=== PATIENT | male | born 1980 | race Hispanic/Latino ===

== ENCOUNTER 2016-04-20 22:56 | Emergency (ER) | payer OTHER ==
[~2016-04-20] VITALS: Ht 165.1 cm; Wt 67.4 kg
[~2016-04-20 22:56] MED LIST: AMOXICILLIN500 MG PO; BACTRIM DS1 TAB PO; CIPRO500 MG OR; CIPROFLOXACN500 MG PO; LORTAB 1010 MG PO; METRONIDAZOL500 MG PO; NAPROSYN500 MG PO; NO HOME MEDS; NORCO1 TA1 PO; ONDANSETRON4 MG PO; PENICILLN VK500 MG OR; ULTRAM50 M1 PO; ULTRAM50 MG OR
[2016-04-20] MEDS ORDERED: DICLOFENAC50 MG PO (23:07)
[2016-04-21 00:59] LABS: HEMATOCRIT 48.6 % (39.0-50.0); HEMOGLOBIN 16.6 g/dl (14.0-18.0); IMMATURE GRANULOCYTES 0.2 % (0.0-1.0); MEAN CELL VOLUME 89.2 fL CALC (80.0-100.0); MEAN CORPUSCULAR HGB 30.5 pG CALC (26.0-32.0); MEAN CORPUSCULAR HGB CONC 34.2 g/L CALC (32.0-36.0); NEUT# 5.53 thou/uL (1.82-7.42); RED BLOOD COUNT 5.45 mill/uL (4.70-6.10); RED CELL DISTRI WIDTH 12.5 % (11.5-15.5)
[2016-04-21 01:24] LABS: ALBUMIN 4.8 g/dL (3.2-5.0); ALKALINE PHOSPHATASE 57 u/l (38-126); AMYLASE 122 u/l (30-110); ANION GAP 18 (6-22 (CALC)); BILIRUBIN, TOTAL 0.5 mg/dL (0.0-1.4); BUN 15 mg/dL (9-20); BUN/CREATININE RATIO 18 (12-20 (CALC)); CALCIUM 9.3 mg/dL (8.4-10.2); CARBON DIOXIDE 26 mmol/l (22-30); CHLORIDE 102 mmol/l (95-108); CREATININE 0.8 mg/dL (0.7-1.3); GFR > 60 ML/MIN (>=60 (CALC)); GFR FOR AFR.AMER. > 60 ML/MIN (>=60 (CALC)); GLUCOSE 102 mg/dL (75-110); LIPASE 121 u/l (23-300); POTASSIUM 4.3 mmol/l (3.5-5.1); SGOT/AST 20 u/l (17-59); SGPT/ALT 32 u/l (21-72); SODIUM 142 mmol/l (137-146); TOTAL PROTEIN 8.7 g/dL (6.3-8.2)
[2016-04-21] MEDS ORDERED: PROTONIX40 MG PO (04:31)
[2016-04-21 04:58] VITALS: BP 131/84
== END 2016-04-21 04:58 | disposition home or self-care (01) | DRG 392 ==
LOC: ED 22:56
PROVIDERS: Emergency Medicine
DX: R10.9 Unspecified abdominal pain (principal)
CPT/HCPCS: Q9967

== ENCOUNTER 2016-09-18 20:16 | Inpatient (IN) | payer SELFPAY ==
[~2016-09-18] VITALS: Ht 165.1 cm; Wt 73.9 kg
[~2016-09-18 20:16] MED LIST changes: +DICLOFENAC50 MG PO; +PROTONIX40 MG PO
--- NOTE | 2016-09-18 20:43 | NUR ---
TO ROOM 8 VIA W/C. ASSISTED TO THE STRETCHER. MAINTAINS THAT HE CAN NOT GIVE A URINE SPECIMEN AT THIS TIME.
[2016-09-18 20:56] LABS: URINE BILIRUBIN - DIPSTICK NEGATIVE (NEGATIVE); URINE BLOOD DIPSTICK NEGATIVE (NEGATIVE); URINE CLARITY CLEAR; URINE COLOR YELLOW; URINE GLUCOSE - DIPSTICK NEGATIVE (NEGATIVE); URINE KETONE NEGATIVE (NEGATIVE); URINE LEUK ESTERASE NEGATIVE (NEGATIVE); URINE NITRITE - DIPSTICK NEGATIVE (Negative); URINE PROTEIN - DIPSTICK NEGATIVE (NEG-TRACE); URINE SPECIFIC GRAVITY 1.015; URINE UROBILINOGEN - DIPSTICK 0.2 E.U./dL (0.2)
[2016-09-18 20:58] LABS: HEMOGLOBIN 15.9 g/dl (14.0-18.0); IMMATURE GRANULOCYTES 0.4 % (0.0-1.0); MEAN CELL VOLUME 91.4 fL CALC (80.0-100.0); MEAN CORPUSCULAR HGB 30.9 pG CALC (26.0-32.0); MEAN CORPUSCULAR HGB CONC 33.8 g/L CALC (32.0-36.0); NEUT# 3.82 thou/uL (1.82-7.42); RED BLOOD COUNT 5.14 mill/uL (4.70-6.10); RED CELL DISTRI WIDTH 12.2 % (11.5-15.5)
--- NOTE | 2016-09-18 20:59 | NUR ---
IVF AND IV PAIN MED GIVEN PER MD ORDER.
[2016-09-18 21:09] LABS: ALKALINE PHOSPHATASE 41 u/l (38-126); AMYLASE 105 u/l (30-110); ANION GAP 17 (6-22 (CALC)); BILIRUBIN, TOTAL 0.4 mg/dL (0.0-1.4); BUN 17 mg/dL (9-20); BUN/CREATININE RATIO 18 (12-20 (CALC)); CALCIUM 9.8 mg/dL (8.4-10.2); CARBON DIOXIDE 28 mmol/l (22-30); CHLORIDE 101 mmol/l (95-108); CREATININE 0.9 mg/dL (0.7-1.3); GFR > 60 ML/MIN (>=60 (CALC)); GFR FOR AFR.AMER. > 60 ML/MIN (>=60 (CALC)); GLUCOSE 89 mg/dL (75-110); LIPASE 172 u/l (23-300); POTASSIUM 4.3 mmol/l (3.5-5.1); SGOT/AST 16 u/l (17-59); SGPT/ALT 37 u/l (21-72); SODIUM 141 mmol/l (137-146); TOTAL PROTEIN 7.9 g/dL (6.3-8.2)
--- NOTE | 2016-09-18 21:59 | NUR ---
RESTING ON STRETCHER, NO C/O FAMILY AT SIDE.
--- NOTE | 2016-09-18 22:18 | NUR ---
PT. STATES HIS ABD. PAIN IS NOW DECREASED TO A 7 ON MA SCALE OF 1-10.
--- NOTE | 2016-09-18 22:30 | NUR ---
IN ROOM TO DISCUSS CLINICAL FINDINGS WITH PT. VERBALIZED UNDERSTANDING.
--- NOTE | 2016-09-18 22:56 | NUR ---
IV ABT STARTED PER MD ORDER.
--- NOTE | 2016-09-18 23:16 | NUR ---
Admission Note Report Given to: PIOTR DELAROSA Transported by: Wheelchair X Stretcher Transported with: X Nurse Transporter X Patent IV O2 Site Controller
--- NOTE | 2016-09-18 23:22 | NUR ---
TRANSFERED TO ME VIA STRETCHER, NO C/O.
--- NOTE | 2016-09-18 23:28 | NUR ---
PATIENT ARRIVED TO THE FLOOR VIA STRETCHER, ACCOMPANIED BY ED STAFF AND FAMILY. PATIENT SETTLED TO BED AND ORIENTED TO ROOM CALL SYSTEM. STATED PAIN OF 7 ON 0-10 PAIN SCALE. BED IN LOW POSITION, CALL LIGHT IN REACH. WILL CONTINUE TO MONITOR.
[2016-09-19 00:42] VITALS: BP 124/84
[2016-09-19 04:00] VITALS: BP 108/67
--- NOTE | 2016-09-19 04:00 | NUR ---
PATIENT RESTING QUIETLY WITH EYES CLOSED AND APPEARS TO BE ASLEEP. NO APPARENT ACUTE DISTRESS OR DISCOMFORT NOTED AT THIS TIME.
--- NOTE | 2016-09-19 07:00 | NUR ---
REPORT RECIEVED FROM ISAURA SALDAÑA; PT RESTING IN BED; NO S/S OF DISTRESS NOTED; CALL [facility] WITHIN REACH; WILL CONTINUE TO MONITOR
[2016-09-19 08:08] VITALS: BP 121/77
--- NOTE | 2016-09-19 12:00 | NUR ---
PT RESTING IN BED; NO S/S OF DISTRESS NOTED; IVF INFUSING AT PRESCRIBED RATE; PT DENIES ANY NEEDS AT THIS TIME; CALL LIGHT WITHIN REACH WILL CONTINUE TO MONITOR
[2016-09-19] MEDS ORDERED: TRAMADOL HCL50 MG PO (13:22)
[2016-09-19] MEDS ORDERED: FLORASTOR250 M1 PO (13:22)
[2016-09-19] MEDS ORDERED: CIPROFLOXACN500 MG PO (13:22)
[2016-09-19] MEDS ORDERED: METRONIDAZOL500 MG PO (13:22)
[2016-09-19 14:15] VITALS: BP 151/77
--- NOTE | 2016-09-19 14:45 | NUR ---
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 Did not have any additional questions or concerns regarding medication.
--- NOTE | 2016-09-19 15:47 | NUR ---
Discharge instructions given. Patient verbalizes understanding of same. Discharged in stable condition via Wheelchair to Home with staff. All belongings sent with pt.
== END 2016-09-19 15:30 | disposition home or self-care (01) | DRG 392 ==
LOC: ENPENDDIS → ED 20:16 → ED-I 22:45 → ED 23:00 → MS2 23:01 → UNDODEPER 09-19 02:59 → MS2 09-19 15:30
PROVIDERS: Emergency Medicine; ADMIT Internal Medicine; ATTEND Internal Medicine
DX: K57.32 Diverticulitis of large intestine without perforation or abscess without bleeding (principal)
CPT/HCPCS: J1956

== ENCOUNTER 2017-04-15 18:11 | Emergency (ER) | payer SELFPAY ==
[~2017-04-15] VITALS: Ht 165.1 cm; Wt 59.0 kg
[~2017-04-15 18:11] MED LIST changes: +FLORASTOR250 M1 PO; +TRAMADOL HCL50 MG PO
[2017-04-15 18:48] LABS: HEMATOCRIT 43.5 % (39.0-50.0); HEMOGLOBIN 14.8 g/dl (14.0-18.0); IMMATURE GRANULOCYTES 0.4 % (0.0-1.0); MEAN CELL VOLUME 91.2 fL CALC (80.0-100.0); NEUT# 6.55 thou/uL (1.82-7.42); RED BLOOD COUNT 4.77 mill/uL (4.70-6.10); RED CELL DISTRI WIDTH 12.6 % (11.5-15.5)
[2017-04-15 18:49] LABS: URINE BILIRUBIN - DIPSTICK NEGATIVE (NEGATIVE); URINE BLOOD DIPSTICK NEGATIVE (NEGATIVE); URINE COLOR YELLOW; URINE GLUCOSE - DIPSTICK NEGATIVE (NEGATIVE); URINE KETONE NEGATIVE (NEGATIVE); URINE LEUK ESTERASE NEGATIVE (NEGATIVE); URINE NITRITE - DIPSTICK NEGATIVE (Negative); URINE PH 8.5 (4.5-8.0); URINE PROTEIN - DIPSTICK NEGATIVE (NEG-TRACE); URINE UROBILINOGEN - DIPSTICK 0.2 E.U./dL (0.2)
[2017-04-15 19:12] LABS: BARBITURATES NEGATIVE (NEGATIVE); COCAINE NEGATIVE (NEGATIVE); METHADONE NEGATIVE (NEGATIVE); TETRAHYDROCANNABIONOL NEGATIVE (NEGATIVE); TRICYLIC ANTIDEPRESSANTS NEGATIVE (NEGATIVE); URINE CLARITY CLEAR
[2017-04-15 19:13] LABS: OXCYCODONE NEGATIVE (NEGATIVE)
[2017-04-15 19:22] LABS: ALBUMIN 4.4 g/dL (3.2-5.0); ALKALINE PHOSPHATASE 51 u/l (38-126); ANION GAP 17 (6-22 (CALC)); BILIRUBIN, TOTAL 0.4 mg/dL (0.0-1.4); BUN 15 mg/dL (9-20); BUN/CREATININE RATIO 18 (12-20 (CALC)); CARBON DIOXIDE 26 mmol/l (22-30); CHLORIDE 104 mmol/l (95-108); CREATININE 0.8 mg/dL (0.7-1.3); GFR > 60 ML/MIN (>=60 (CALC)); GFR FOR AFR.AMER. > 60 ML/MIN (>=60 (CALC)); POTASSIUM 4.2 mmol/l (3.5-5.1); SGOT/AST 18 u/l (17-59); SGPT/ALT 22 u/l (21-72); SODIUM 142 mmol/l (137-146); TOTAL PROTEIN 7.1 g/dL (6.3-8.2)
[2017-04-15 19:33] LABS: MYOGLOBIN 11 ng/mL (0 - 121)
[2017-04-15 23:10] VITALS: BP 123/81
== END 2017-04-15 23:10 | disposition home or self-care (01) | DRG 313 ==
LOC: ED 18:11
PROVIDERS: Emergency Medicine
DX: R07.89 Other chest pain (principal); R50.9 Fever, unspecified; R94.31 Abnormal electrocardiogram [ECG] [EKG]

== ENCOUNTER 2017-05-08 09:01 | Emergency (ER) | payer SELFPAY ==
[~2017-05-08] VITALS: Ht 165.1 cm; Wt 80.0 kg
[2017-05-08 09:58] LABS: HEMATOCRIT 45.1 % (39.0-50.0); HEMOGLOBIN 15.5 g/dl (14.0-18.0); IMMATURE GRANULOCYTES 0.4 % (0.0-1.0); MEAN CELL VOLUME 90.4 fL CALC (80.0-100.0); MEAN CORPUSCULAR HGB 31.1 pG CALC (26.0-32.0); MEAN CORPUSCULAR HGB CONC 34.4 g/L CALC (32.0-36.0); NEUT# 4.75 thou/uL (1.82-7.42); RED BLOOD COUNT 4.99 mill/uL (4.70-6.10); RED CELL DISTRI WIDTH 12.8 % (11.5-15.5)
[2017-05-08 10:19] LABS: ALBUMIN 4.1 g/dL (3.2-5.0); ALKALINE PHOSPHATASE 64 u/l (38-126); ANION GAP 17 (6-22 (CALC)); BILIRUBIN, TOTAL 0.4 mg/dL (0.0-1.4); BUN 15 mg/dL (9-20); BUN/CREATININE RATIO 18 (12-20 (CALC)); CARBON DIOXIDE 25 mmol/l (22-30); CHLORIDE 106 mmol/l (95-108); CREATININE 0.8 mg/dL (0.7-1.3); GFR > 60 ML/MIN (>=60 (CALC)); GFR FOR AFR.AMER. > 60 ML/MIN (>=60 (CALC)); LIPASE 76 u/l (23-300); POTASSIUM 4.2 mmol/l (3.5-5.1); SGOT/AST 16 u/l (17-59); SGPT/ALT 22 u/l (21-72); SODIUM 144 mmol/l (137-146)
[2017-05-08 11:07] LABS: URINE BILIRUBIN - DIPSTICK NEGATIVE (NEGATIVE); URINE BLOOD DIPSTICK NEGATIVE (NEGATIVE); URINE COLOR YELLOW; URINE GLUCOSE - DIPSTICK NEGATIVE (NEGATIVE); URINE KETONE NEGATIVE (NEGATIVE); URINE LEUK ESTERASE NEGATIVE (NEGATIVE); URINE NITRITE - DIPSTICK NEGATIVE (Negative); URINE PH 7.5 (4.5-8.0); URINE PROTEIN - DIPSTICK NEGATIVE (NEG-TRACE); URINE UROBILINOGEN - DIPSTICK 0.2 E.U./dL (0.2)
[2017-05-08 11:19] LABS: URINE CLARITY CLEAR
[2017-05-08 11:44] VITALS: BP 133/76
== END 2017-05-08 12:05 | disposition home or self-care (01) | DRG 395 ==
LOC: ED 09:01
PROVIDERS: Family Medicine
DX: K40.90 Unilateral inguinal hernia, without obstruction or gangrene, not specified as recurrent (principal); R10.31 Right lower quadrant pain
CPT/HCPCS: Q9967

== ENCOUNTER 2018-07-02 12:16 | Emergency (ER) | payer SELFPAY ==
[~2018-07-02] VITALS: Ht 165.1 cm; Wt 65.0 kg
[~2018-07-02 12:16] MED LIST changes: +AMOXICILLIN500 MG OR; +AUGMENTIN500 MG OR; +CIPRO250 MG OR; +DOXYCYCL HYC100 M4 PO; +ERY-TAB333 MG OR; +FLAGYL250 MG OR; +FLEXERIL OR; +KEFLEX500 MG PO; +NO; +PROMETHAZINE25 MG OR; +ROBITUSSIN AC OR
[2018-07-02 14:03] LABS: HEMATOCRIT 44.1 % (39.0-50.0); IMMATURE GRANULOCYTES 0.4 % (0.0-5.0); MEAN CELL VOLUME 90.9 fL CALC (80.0-100.0); MEAN CORPUSCULAR HGB 30.9 pG CALC (26.0-32.0); NEUT# 2.66 thou/uL (1.82-7.42); RED BLOOD COUNT 4.85 mill/uL (4.70-6.10); RED CELL DISTRI WIDTH 12.4 % (11.5-15.5)
[2018-07-02 14:22] LABS: ALBUMIN 4.4 g/dL (3.2-5.0); ALKALINE PHOSPHATASE 51 u/l (38-126); ANION GAP 15 (6-22 (CALC)); BILIRUBIN, TOTAL 0.6 mg/dL (0.0-1.4); BUN 17 mg/dL (9-20); BUN/CREATININE RATIO 19 (12-20 (CALC)); CARBON DIOXIDE 28 mmol/l (22-30); CHLORIDE 103 mmol/l (95-108); CREATININE 0.9 mg/dL (0.7-1.3); GFR > 60 ML/MIN (>=60 (CALC)); GFR FOR AFR.AMER. > 60 ML/MIN (>=60 (CALC)); LIPASE 77 u/l (23-300); POTASSIUM 3.8 mmol/l (3.5-5.1); SGOT/AST 24 u/l (17-59); SODIUM 142 mmol/l (137-146); TOTAL PROTEIN 7.7 g/dL (6.3-8.2)
[2018-07-02 14:31] LABS: URINE BILIRUBIN - DIPSTICK NEGATIVE (NEGATIVE); URINE BLOOD DIPSTICK TRACE-INTACT (NEGATIVE); URINE COLOR YELLOW; URINE GLUCOSE - DIPSTICK NEGATIVE (NEGATIVE); URINE KETONE NEGATIVE (NEGATIVE); URINE LEUK ESTERASE NEGATIVE (NEGATIVE); URINE NITRITE - DIPSTICK NEGATIVE (Negative); URINE PH 5.5 (4.5-8.0); URINE PROTEIN - DIPSTICK NEGATIVE (NEG-TRACE); URINE SPECIFIC GRAVITY >=1.030; URINE UROBILINOGEN - DIPSTICK 0.2 E.U./dL (0.2)
[2018-07-02 14:39] LABS: BARBITURATES NEGATIVE (NEGATIVE); COCAINE NEGATIVE (NEGATIVE); METHADONE NEGATIVE (NEGATIVE); OXCYCODONE NEGATIVE (NEGATIVE); TETRAHYDROCANNABIONOL NEGATIVE (NEGATIVE); TRICYLIC ANTIDEPRESSANTS NEGATIVE (NEGATIVE)
[2018-07-02] MEDS ORDERED: LOMOTIL2.5 MG PO (15:15)
[2018-07-02] MEDS ORDERED: ONDANSETRON4 MG PO (15:15)
[2018-07-02] MEDS ORDERED: BENTYL10 MG PO (15:15)
[2018-07-02 15:45] VITALS: BP 117/70
[2018-07-02 16:39] LABS: C. DIFFICILE TOXIN A&B NEGATIVE (NEGATIVE)
== END 2018-07-02 15:45 | disposition home or self-care (01) | DRG 392 ==
LOC: ED 12:16
PROVIDERS: Emergency Medicine
DX: K52.9 Noninfective gastroenteritis and colitis, unspecified (principal); R11.2 Nausea with vomiting, unspecified; R10.84 Generalized abdominal pain

== ENCOUNTER 2019-05-31 | Emergency (ER) | payer SELFPAY ==
[~2019-05-31] MED LIST changes: +BENTYL10 MG PO; +LOMOTIL2.5 MG PO
[2019-05-31 19:24] LABS: HEMATOCRIT 44.4 % (39.0-50.0); IMMATURE GRANULOCYTES 0.3 % (0.0-5.0); MEAN CELL VOLUME 89.2 fL CALC (80.0-100.0); MEAN CORPUSCULAR HGB 30.1 pG CALC (26.0-32.0); MEAN CORPUSCULAR HGB CONC 33.8 g/dL CAL (32.0-36.0); NEUT# 4.4 thou/uL (1.82-7.42); RED BLOOD COUNT 4.98 mill/uL (4.70-6.10); RED CELL DISTRI WIDTH 12.6 % (11.5-15.5)
[2019-05-31 19:25] LABS: URINE BILIRUBIN - DIPSTICK NEGATIVE (NEGATIVE); URINE BLOOD DIPSTICK TRACE-INTACT (NEGATIVE); URINE COLOR YELLOW; URINE GLUCOSE - DIPSTICK NEGATIVE (NEGATIVE); URINE KETONE NEGATIVE (NEGATIVE); URINE LEUK ESTERASE NEGATIVE (NEGATIVE); URINE NITRITE - DIPSTICK NEGATIVE (Negative); URINE PH 5.5 (4.5-8.0); URINE PROTEIN - DIPSTICK NEGATIVE (NEG-TRACE); URINE SPECIFIC GRAVITY >=1.030; URINE UROBILINOGEN - DIPSTICK 0.2 E.U./dL (0.2)
[2019-05-31 19:27] LABS: BARBITURATES NEGATIVE (NEGATIVE); COCAINE NEGATIVE (NEGATIVE); METHADONE NEGATIVE (NEGATIVE); OXCYCODONE NEGATIVE (NEGATIVE); TETRAHYDROCANNABIONOL NEGATIVE (NEGATIVE); TRICYLIC ANTIDEPRESSANTS NEGATIVE (NEGATIVE)
[2019-05-31 19:34] LABS: ALBUMIN 4.5 g/dL (3.2-5.0); ALKALINE PHOSPHATASE 49 u/l (38-126); ANION GAP 16 (6-22 (CALC)); BUN 16 mg/dL (9-20); BUN/CREATININE RATIO 19 (12-20 (CALC)); CARBON DIOXIDE 23 mmol/l (22-30); CHLORIDE 103 mmol/l (95-108); CREATININE 0.9 mg/dL (0.7-1.3); GFR > 60 ML/MIN (>=60 (CALC)); GFR FOR AFR.AMER. > 60 ML/MIN (>=60 (CALC)); LIPASE 147 u/l (23-300); POTASSIUM 4.1 mmol/l (3.5-5.1); SGOT/AST 23 u/l (17-59); SODIUM 139 mmol/l (137-146); TOTAL PROTEIN 7.7 g/dL (6.3-8.2)
[2019-05-31 19:36] LABS: BILIRUBIN, TOTAL 0.4 mg/dL (0.0-1.4)
== END 2019-05-31 20:27 | disposition home or self-care (01) | DRG 313 ==
DX: R07.9 Chest pain, unspecified (principal)

== ENCOUNTER 2020-03-17 09:55 | Emergency (ER) | payer OTHER ==
[~2020-03-17] VITALS: Ht 165.1 cm; Wt 75.0 kg
[2020-03-17 10:46] LABS: HEMATOCRIT 45.3 % (39.0-50.0); HEMOGLOBIN 15.1 g/dl (14.0-18.0); IMMATURE GRANULOCYTES 0.4 % (0.0-5.0); MEAN CELL VOLUME 90.1 fL CALC (80.0-100.0); MEAN CORPUSCULAR HGB CONC 33.3 g/dL CAL (32.0-36.0); NEUT# 5.23 thou/uL (1.82-7.42); RED BLOOD COUNT 5.03 mill/uL (4.70-6.10); RED CELL DISTRI WIDTH 12.6 % (11.5-15.5)
[2020-03-17 11:03] LABS: ALBUMIN 4.2 g/dL (3.2-5.0); ALKALINE PHOSPHATASE 59 u/l (38-126); ANION GAP 11 (6-22 (CALC)); BILIRUBIN, TOTAL 0.5 mg/dL (0.0-1.4); BUN 16 mg/dL (9-20); BUN/CREATININE RATIO 20 (12-20 (CALC)); CHLORIDE 105 mmol/l (95-108); CREATININE 0.8 mg/dL (0.7-1.3); GFR > 60 ML/MIN (>=60 (CALC)); GFR FOR AFR.AMER. > 60 ML/MIN (>=60 (CALC)); POTASSIUM 3.9 mmol/l (3.5-5.1); SGOT/AST 23 u/l (17-59); SODIUM 140 mmol/l (137-146); TOTAL PROTEIN 7.5 g/dL (6.3-8.2)
[2020-03-17 11:07] LABS: CARBON DIOXIDE 28 mmol/l (22-30)
[2020-03-17] MEDS ORDERED: ONDANSETRON4 MG PO (11:41)
[2020-03-17 13:28] VITALS: BP 131/81
== END 2020-03-17 13:26 | disposition home or self-care (01) | DRG 313 ==
LOC: ED 09:55
PROVIDERS: Family Medicine
DX: R07.9 Chest pain, unspecified (principal); R11.2 Nausea with vomiting, unspecified; Z20.822 Contact with and (suspected) exposure to COVID-19

== ENCOUNTER 2020-06-10 | Emergency (ER) | payer OTHER ==
[2020-06-10 10:15] LABS: HEMATOCRIT 45.4 % (39.0-50.0); IMMATURE GRANULOCYTES 0.3 % (0.0-5.0); MEAN CELL VOLUME 91.7 fL CALC (80.0-100.0); MEAN CORPUSCULAR HGB 30.3 pG CALC (26.0-32.0); NEUT# 3.62 thou/uL (1.82-7.42); RED BLOOD COUNT 4.95 mill/uL (4.70-6.10); RED CELL DISTRI WIDTH 12.8 % (11.5-15.5)
[2020-06-10 10:31] LABS: URINE BILIRUBIN - DIPSTICK NEGATIVE (NEGATIVE); URINE BLOOD DIPSTICK NEGATIVE (NEGATIVE); URINE COLOR YELLOW; URINE GLUCOSE - DIPSTICK NEGATIVE (NEGATIVE); URINE KETONE NEGATIVE (NEGATIVE); URINE LEUK ESTERASE NEGATIVE (NEGATIVE); URINE PROTEIN - DIPSTICK NEGATIVE (NEG-TRACE); URINE SPECIFIC GRAVITY 1.015; URINE UROBILINOGEN - DIPSTICK 0.2 E.U./dL (0.2)
[2020-06-10 10:34] LABS: URINE NITRITE - DIPSTICK NEGATIVE (Negative)
[2020-06-10 10:35] LABS: ALBUMIN 4.5 g/dL (3.2-5.0); ALKALINE PHOSPHATASE 48 u/l (38-126); ANION GAP 10 (6-22 (CALC)); BILIRUBIN, TOTAL 0.7 mg/dL (0.0-1.4); BUN 15 mg/dL (9-20); BUN/CREATININE RATIO 18 (12-20 (CALC)); CARBON DIOXIDE 31 mmol/l (22-30); CHLORIDE 100 mmol/l (95-108); CREATININE 0.9 mg/dL (0.7-1.3); GFR > 60 ML/MIN (>=60 (CALC)); GFR FOR AFR.AMER. > 60 ML/MIN (>=60 (CALC)); POTASSIUM 4.2 mmol/l (3.5-5.1); SGOT/AST 24 u/l (17-59); SODIUM 136 mmol/l (137-146); TOTAL PROTEIN 7.8 g/dL (6.3-8.2)
[2020-06-10 10:45] LABS: MYOGLOBIN 27 ng/mL (0 - 121)
[2020-06-10] MEDS ORDERED: FIORICET PO (11:42)
== END 2020-06-10 12:09 | disposition home or self-care (01) | DRG 103 ==
PROVIDERS: Emergency Medicine
DX: R51.9 Headache, unspecified (principal); R42 Dizziness and giddiness; M79.10 Myalgia, unspecified site; Z20.822 Contact with and (suspected) exposure to COVID-19

== ENCOUNTER 2023-04-11 13:56 | Emergency (ER) | payer OTHER ==
[2023-04-11] VITALS (7 sets, daily range): BP systolic 116–139; BP diastolic 69–88
[~2023-04-11] VITALS: Ht 167.6 cm; Wt 63.0 kg
[~2023-04-11 13:56] MED LIST changes: +FIORICET PO
[2023-04-11] MEDS ORDERED: SODIUM CHLORIDE 0.9% 1,000 ML IV STA (16:28)
[2023-04-11] MEDS ORDERED: ONDANSETRON HCl 4 MG/2 ML SDV IV STA (16:28)
[2023-04-11] MEDS ORDERED: MORPHINE SULFATE 4 MG/ML VIAL IV ONE (16:35)
[2023-04-11] MEDS ORDERED: FAMOTIDINE 10MG/ML 2ML SDV IV ONE (16:35)
[2023-04-11 17:00] LABS: BASO% 0.4 % (0-3); HEMATOCRIT 42.1 % (39.0-50.0); HEMOGLOBIN 14.2 g/dl (14.0-18.0); IMMATURE GRANULOCYTES 0.4 % (0.0-5.0); LYMPH% 11.9 % (15-41); MEAN CELL VOLUME 92.5 fL CALC (80.0-100.0); MEAN CORPUSCULAR HGB 31.2 pG CALC (26.0-32.0); MEAN CORPUSCULAR HGB CONC 33.7 g/dL CAL (32.0-36.0); MONO% 10.2 % (2-13); NEUT# 6.08 thou/uL (1.82-7.42); NEUT% 77.1 % (42-76); RED BLOOD COUNT 4.55 mill/uL (4.70-6.10)
[2023-04-11 17:08] LABS: ALBUMIN 4.4 g/dL (3.2-5.0); ALKALINE PHOSPHATASE 54 u/l (38-126); BILIRUBIN, TOTAL 0.8 mg/dL (0.2-1.3); BUN 15 mg/dL (9-20); BUN/CREATININE RATIO 14 (12-20 (CALC)); CHLORIDE 104 mmol/l (95-108); CREATININE 1.1 mg/dL (0.7-1.3); GFR FOR AFR.AMER. > 60 ML/MIN (>=60 (CALC)); GFR OTHER RACES > 60 ML/MIN (>=60 (CALC)); LIPASE 93 u/l (23-300); POTASSIUM 3.9 mmol/l (3.5-5.1); SGOT/AST 27 u/l (17-59); SODIUM 136 mmol/l (137-146); TOTAL PROTEIN 7.3 g/dL (6.3-8.2)
[2023-04-11 17:10] LABS: ANION GAP 12 (6-22 (CALC)); CARBON DIOXIDE 24 mmol/l (22-30)
[2023-04-11 18:57] LABS: URINE BILIRUBIN - DIPSTICK Negative (NEGATIVE); URINE BLOOD DIPSTICK Trace-lysed (NEGATIVE); URINE COLOR Yellow; URINE GLUCOSE - DIPSTICK Negative (NEGATIVE); URINE KETONE 15 mg/dL (NEGATIVE); URINE LEUK ESTERASE Negative (NEGATIVE); URINE NITRITE - DIPSTICK Negative (Negative); URINE PH 6.5 (4.5-8.0); URINE PROTEIN - DIPSTICK Negative (NEG-TRACE); URINE UROBILINOGEN - DIPSTICK 0.2 E.U./dL (0.2)
[2023-04-11] MEDS ORDERED: CIPROFLOXACIN HCL 500 MG/TAB PO ONE (19:30)
[2023-04-11] MEDS ORDERED: metroNIDAZOLE 500 MG/TAB PO ONE (19:30)
[2023-04-11] MEDS ORDERED: CIPROFLOXACN500 MG PO (19:31)
[2023-04-11] MEDS ORDERED: METRONIDAZOLE500 MG PO (19:31)
[2023-04-11] MEDS ORDERED: DICYCLOMINE HYD10 MG PO (19:33)
[2023-04-11] MEDS ORDERED: ZOFRAN4 MG/TAB PO (19:33)
== END 2023-04-11 20:34 | disposition home or self-care (01) | DRG 391 ==
LOC: ED 13:56
PROVIDERS: Nurse Practitioner
DX: K57.32 Diverticulitis of large intestine without perforation or abscess without bleeding (principal); U07.1 COVID-19
CPT/HCPCS: Q9967

== ENCOUNTER 2024-02-02 10:56 | Emergency (ER) | payer BC ==
[2024-02-02] VITALS (10 sets, daily range): BP systolic 134–158; BP diastolic 86–97
[~2024-02-02] VITALS: Ht 167.6 cm; Wt 63.5 kg
[~2024-02-02 10:56] MED LIST changes: +DICYCLOMINE HYD10 MG PO; +METHOCARBAMOL500 MG PO; +METRONIDAZOLE500 MG PO; +NAPROXEN500 MG PO; +ZOFRAN4 MG/TAB PO
[2024-02-02] MEDS ORDERED: ASPIRIN 81 MG/TAB PO ONE (12:00)
[2024-02-02] MEDS ORDERED: ONDANSETRON HCl 4 MG/2 ML SDV IV ONE (12:00)
[2024-02-02] MEDS ORDERED: SODIUM CHLORIDE 0.9% 1,000 ML IV ONE (12:00)
[2024-02-02 12:19] LABS: BASO% 0.3 % (0-3); EOS% 1.4 % (0-8); HEMATOCRIT 46.5 % (39.0-50.0); HEMOGLOBIN 15.4 g/dl (14.0-18.0); IMMATURE GRANULOCYTES 0.3 % (0.0-5.0); LYMPH% 14.7 % (15-41); MEAN CELL VOLUME 92.4 fL CALC (80.0-100.0); MEAN CORPUSCULAR HGB 30.6 pG CALC (26.0-32.0); MEAN CORPUSCULAR HGB CONC 33.1 g/dL CAL (32.0-36.0); MONO% 5.4 % (2-13); NEUT# 8.84 thou/uL (1.82-7.42); NEUT% 77.9 % (42-76); RED BLOOD COUNT 5.03 mill/uL (4.70-6.10); RED CELL DISTRI WIDTH 12.1 % (11.5-15.5)
[2024-02-02 12:31] LABS: ALBUMIN 4.5 g/dL (3.2-5.0); ALKALINE PHOSPHATASE 61 u/l (38-126); ANION GAP 15 (6-22 (CALC)); BILIRUBIN, TOTAL 0.7 mg/dL (0.2-1.3); BUN 13 mg/dL (9-20); BUN/CREATININE RATIO 15 (12-20 (CALC)); CARBON DIOXIDE 26 mmol/l (22-30); CHLORIDE 104 mmol/l (95-108); CREATININE 0.9 mg/dL (0.7-1.3); ESTIMATED GFR 107 ML/MIN (>=90 (CALC)); LIPASE 75 u/l (23-300); POTASSIUM 4.5 mmol/l (3.5-5.1); SGOT/AST 26 u/l (17-59); SODIUM 141 mmol/l (137-146)
[2024-02-02] MEDS ORDERED: KETOROLAC TROMETHAMINE 30 MG/ML SDV IV STA (12:42)
[2024-02-02] MEDS ORDERED: PROMETHAZINE HCL 25 MG/ML AMP IV STA (12:42)
[2024-02-02] MEDS ORDERED: ISOVUE-300 (Iopamidol) 100 ML SDV IV ONE (12:45)
[2024-02-02] MEDS ORDERED: HALOPERIDOL LACTATE 5 MG/ML SDV IV ONE (14:40)
[2024-02-02 15:01] LABS: URINE BILIRUBIN - DIPSTICK Negative (NEGATIVE); URINE BLOOD DIPSTICK Negative (NEGATIVE); URINE GLUCOSE - DIPSTICK Negative (NEGATIVE); URINE KETONE Negative (NEGATIVE); URINE LEUK ESTERASE Negative (NEGATIVE); URINE NITRITE - DIPSTICK Negative (Negative); URINE PROTEIN - DIPSTICK Negative (NEG-TRACE); URINE UROBILINOGEN - DIPSTICK 0.2 E.U./dL (0.2)
[2024-02-02 15:05] LABS: URINE COLOR Yellow
[2024-02-02] MEDS ORDERED: CIPROFLOXACIN HCL 500 MG/TAB PO ONE (15:25)
[2024-02-02] MEDS ORDERED: metroNIDAZOLE 500 MG/TAB PO ONE (15:25)
[2024-02-02] MEDS ORDERED: DICYCLOMINE HCL 10 MG/CAP PO ONE (15:25)
[2024-02-02] MEDS ORDERED: ZOFRAN4 MG/TAB PO (15:32)
[2024-02-02] MEDS ORDERED: TRAMADOL HYDROC50 M1 PO (15:32)
== END 2024-02-02 15:59 | disposition home or self-care (01) | DRG 392 ==
LOC: ED 10:56
PROVIDERS: Family Medicine
DX: K57.32 Diverticulitis of large intestine without perforation or abscess without bleeding (principal); Z20.822 Contact with and (suspected) exposure to COVID-19